=== PATIENT | male | born 1945 | race Caucasian/White ===

== ENCOUNTER 2017-01-19 20:50 | Emergency (ER) | payer MEDICARE, BC ==
[2017-01-19 21:16] VITALS: BP 119/61
--- NOTE | 2017-01-19 22:40 | RADIOLOGY REPORT (SQ) ---
EXAM DESCRIPTION: SHOULDER RIGHT 2 OR MORE VIEWS COMPLETED DATE/TIME: 01/19/2017 10:24 pm REASON FOR STUDY: drainage post op COMPARISON: None. NUMBER OF VIEWS: Three views. TECHNIQUE: Internal rotation, external rotation, and Y view images acquired of the right shoulder. LIMITATIONS: None. FINDINGS: MINERALIZATION: Normal. BONES: No acute fracture or dislocation. There is some deformity of the humeral head at the level of the greater tuberosity which may be related to previous trauma. JOINTS: No dislocation. VISUALIZED LUNGS AND RIBS: No pneumothorax. No rib fracture. SOFT TISSUES: No radiopaque foreign body. OTHER: Orthopedic hardware is identified at the level of the humeral head. IMPRESSION: NO RADIOGRAPHIC EVIDENCE OF ACUTE INJURY. Other findings as noted above. TECHNICAL DOCUMENTATION: JOB ID: [id number] [employer]- All Rights Reserved
[2017-01-19] MEDS ORDERED: HYDROCODONE/ACETAMINOPHEN 5-325 MG 6 TAB/DSPK PO PRN (22:47)
[2017-01-19] MEDS ORDERED: DOXYCYCLINE HYCLATE 100 MG TABLET PO ONE (22:48)
[2017-01-19] MEDS ORDERED: CLINDAMYCIN HCL 150 MG CAPSULE PO ONE ×2 (22:48)
--- NOTE | 2017-01-19 22:50 | ER Document Report ---
ED Wound - General Chief Complaint: Wound Infection Stated Complaint: POST SURGICAL COMPLICATION Time Seen by Provider: 01/19/17 22:47 Mode of Arrival: Ambulatory Information source: Patient TRAVEL OUTSIDE OF THE [place] IN LAST 30 DAYS: No - HPI Patient complains to provider of: Wound infection Occurred: This evening Onset/Duration: Sudden Quality of pain: Achy, Pressure Severity: Moderate Pain Level: 2 Skin Color: Erythema Capillary refill: < 3 seconds Sensations intact: Yes Distal pulses present: Yes Associated Symptoms: Drainage Notes: Is a 72-year-old male complaining of wound infection to his right shoulder, had right rotator cuff surgery at [facility] approximately 5 weeks ago , tonight he noticed increased redness and swelling, and was able to express a large amount of pus from the area, denies any fevers, has had pain in the shoulder increasing over the last 2 days, has already spoken to the EZEKIEL Hooks who works with his orthopedic surgeon and requested a call from the hospital and patient is evaluated - Related Data Allergies/Adverse Reactions: Penicillins Allergy (Verified 01/19/17 21:16) Past Medical History - General Information source: Patient - Social History Smoking Status: Never Smoker Family History: Reviewed & Not Pertinent Patient has suicidal ideation: No Patient has homicidal ideation: No Renal/ Medical History: Denies: Hx Peritoneal Dialysis Review of Systems - Review of Systems Constitutional: No symptoms reported EENT: No symptoms reported Cardiovascular: No symptoms reported Respiratory: No symptoms reported Gastrointestinal: No symptoms reported Genitourinary: No symptoms reported Male Genitourinary: No symptoms reported Musculoskeletal: No symptoms reported Skin: See HPI Hematologic/Lymphatic: No symptoms reported Neurological/Psychological: No symptoms reported -: Yes All other systems reviewed and negative Physical Exam - Vital signs Vitals: Temp Pulse Resp BP Pulse Ox 98.1 F 74 16 119/61 96 01/19/17 21:13 01/19/17 21:13 01/19/17 21:13 01/19/17 21:13 01/19/17 21:13 - Notes Notes: - General General appearance: Appears well, Alert In distress: None - HEENT Head: Normocephalic, Atraumatic Eyes: Normal Conjunctiva: Normal Extraocular movements intact: Yes Eyelashes: Normal Pupils: PERRL - Respiratory Respiratory status: No respiratory distress - Cardiovascular Rhythm: Regular - Abdominal Inspection: Normal - Back Back: Normal - Extremities General upper extremity: Right superior shoulder with healing surgical wound, erythematous with mild fluctuance, able to express a small amount of pus with gentle pressure, distal sensation and motor is intact with 2+ radial pulses and brisk capillary refill General lower extremity: Normal inspection - Neurological Neuro grossly intact: Yes Orientation: AAOx4 [place] Coma Scale Eye Opening: Spontaneous [place] Coma Scale Verbal: Oriented [place] Coma Scale Motor: Obeys Commands [place] Coma Scale Total: 15 - Psychological Associated symptoms: Normal affect, Normal mood - Skin Skin Temperature: Warm Skin Moisture: Dry Skin Color: Normal Course - Re-evaluation Re-evalutation: 01/19/17 22:51 Was discussed with EZEKIEL Hooks, who works with Dr. Peyman Mckeon, orthopedic surgeon and already spoke with Dr. Mckeon, recommended against performing a full incision and drainage and they will see the patient first thing in the morning and take care of it, he did request that the wound be cleaned and irrigated, expresses much pus as possible and start patient on doxycycline and clindamycin, I was able to express a small amount of drainage with gentle pressure, a wound culture was performed and sent to the lab for testing, patient was started on antibiotics as requested and advised to follow-up at [facility] in the morning with his orthopedic surgeon, patient acknowledges understanding and agreement with this plan - Vital Signs Vital signs: Temp Pulse Resp BP Pulse Ox 98.1 F 74 16 119/61 96 01/19/17 21:13 01/19/17 21:13 01/19/17 21:13 01/19/17 21:13 01/19/17 21:13 - Diagnostic Test Radiology reviewed: Image reviewed, Reports reviewed Discharge - Discharge Clinical Impression: Wound infection Condition: Stable Disposition: HOME, SELF-CARE Instructions: Prophylactic Antibiotic ([facility]), Oral Narcotic Medication ([facility]), Soap Cleansing ([facility]) Additional Instructions: Follow-up with your orthopedic surgeon first thing in the morning as scheduled. Return to the emergency room immediately if symptoms worsen or any additional concerns. Prescriptions: Clindamycin HCl [Cleocin 150 mg Capsule] 450 mg PO Q6 10 Days Doxycycline Hyclate 100 mg PO BID #20 tablet.
== END 2017-01-19 23:48 | disposition home or self-care (01) ==
LOC: ER 20:50
DX: T81.4XXA Infection following a procedure, initial encounter (principal); Z88.0 Allergy status to penicillin
CPT/HCPCS: 99282; 87070; 87205; 87077; 87186; 73030; A9270 ×3